=== PATIENT | male | born 1940 | race Caucasian/White ===

== ENCOUNTER 2021-09-30 20:47 | Inpatient (IN) | payer MEDICARE, BC ==
[~2021-09-30] VITALS: Ht 167.6 cm; Wt 79.8 kg
[~2021-09-30 20:47] MED LIST: AMLO-213 PO; ASPI-605 PO; LISI40TA13 PO; RANI-655 PO; SIMV20TA2 PO
--- NOTE | 2021-09-30 20:53 | NUR ---
AREN - SISTER, [place]- [phone], [place]- [phone]
--- NOTE | 2021-09-30 20:59 | NUR ---
PT BIBRA C/O NEAR SYNCOPAL EPISODE. PT REPORTS BEING ON THE TOILET WHEN HE BECAME DIZZY, BUT HAS DIFFICULTY RECALLING THE REST OF THE EVENTS. STATES HIS ASSITED HIM WHEN HE BECAME DIZZY AND DENIES SYNCOPE. DENIES ANY CURRENT DIZZINESS, N/V, C/P, OR SOB. ALL SKIN IS INTACT WITH NO SIGNS OF TRAUMA, NO NEURO DEFICITS, AND PT DENIES PAIN. PT PLACED ON THE MONITOR AND CHANGED INTO A GOWN. ALL VITALS STABLE. MD WAS AT THE BEDSIDE FOR EVAL.
[2021-09-30 21:24] LABS: BASOPHILS # (AUTO) 0.1 K/uL (0.0-0.2); BASOPHILS % (AUTO) 1.2 % (0.0-2.0); EOSINOPHILS % (AUTO) 3.1 % (0.0-6.0); HEMATOCRIT 42 % (39-51); LYMPHOCYTES # (AUTO) 1.1 K/uL (0.8-4.8); MEAN CORPUSCULAR HGB CONC 33 g/dl (31.0-36.0); MEAN CORPUSCULAR VOLUME 95 fL (80-96); MONOCYTES # (AUTO) 0.8 K/uL (0.1-1.30); MONOCYTES % (AUTO) 10.4 % (2.0-12.0); NEUTROPHILS # (AUTO) 5.5 K/uL (1.8-8.9); NEUTROPHILS % (AUTO) 71.3 % (43.0-81.0); PLATELET COUNT (AUTO) 167 K/uL (150-450); RED BLOOD CELL COUNT(AUTO) 4.43 MIL/uL (4.5-6.0); WHITE BLOOD COUNT (AUTO) 7.8 K/uL (4.3-11.0)
[2021-09-30 21:36] LABS: ALANINE AMINOTRANSFERASE 26 U/L (12-78); ALBUMIN 3.5 g/dL (3.4-5.0); ALKALINE PHOSPHATASE 74 U/L (46-116); ASPARTATE AMINOTRANSFERASE 24 U/L (15-37); BILIRUBIN,DIRECT 0.2 mg/dL (0.0-0.2); BILIRUBIN,TOTAL 0.4 mg/dL (0.2-1.0); CALCIUM, SERUM 8.3 mg/dL (8.5-10.1); CARBON DIOXIDE 24 mmol/L (21-32); CHLORIDE 90 mmol/L (98-107); CREATININE 0.9 mg/dL (0.6-1.3); GLUCOSE 121 mg/dL (74-106); POTASSIUM 4.4 mmol/L (3.5-5.1); SODIUM SERUM 126 mmol/L (136-145); TOTAL PROTEIN, SERUM 6.7 g/dL (6.4-8.2); UREA NITROGEN, BLOOD 8 mg/dL (7-18)
[2021-09-30] MEDS ORDERED: MAGNESIUM HYDROXIDE 30 ML UDC PO PRN (23:00)
[2021-09-30] MEDS ORDERED: MAG HYDROX/AL HYDROX/SIMETH 30 ML UDC PO PRN (23:00)
[2021-09-30] MEDS ORDERED: ONDANSETRON HCL/PF 4 MG/2 ML VIAL IVP PRN (23:00)
[2021-09-30] MEDS ORDERED: ACETAMINOPHEN 325 MG TABLET PO PRN (23:00)
[2021-09-30] MEDS ORDERED: ZOLPIDEM TARTRATE 5 MG TABLET PO PRN (23:00)
[2021-09-30] MEDS ORDERED: Z GUARD REMEDY 2 OZ OINT TP PRN (23:00)
--- NOTE | 2021-09-30 23:20 | NUR ---
REPORT GIVEN TO HAIM
--- NOTE | 2021-10-01 00:38 | NUR ---
TRANSFERRED TO 311 UNDER ACLS
[2021-10-01 01:00] VITALS: BP 144/67
--- NOTE | 2021-10-01 01:00 | NUR ---
MS JULIAN ADMITTING/OPENING NOTES PATIENT WAS TRANSFERRED TO THE UNIT VIA [facility] ACCOMPANIED BY NURSE CAUSEY AT APPROXIMATELY THIS TIME. PATIENT WAS ABLE TO AMBULATE FROM THE GURNEY TO HIS BED. PATIENT WAS ORIENTED TO THE STAFF AND ROOM. PATIENT'S ALERT AND ORIENTED X4. PATIENT'S STABLE ON ROOM AIR. PATIENT HAS A LAC GAUGE#18, WHICH IS INTACT, PATENT, AND FLUSHING WELL. PATIENT'S IN NO ACUTE DISTRESS AT THIS TIME. SAFETY MEASURES IN PLACE: BED LOCKED, SIDE RAILS UPX2, AND CALL LIGHT WITHIN REACH. WILL CONTINUE TO MONITOR THE PATIENT. Addendum: 10/01/21 at 0204 by HAIM MAYES RN REPORT GIVEN BY GIANCARLO CAUSEY.
[2021-10-01] MEDS: IV NS 0.9% 1,000 ML IV PRN ×2 (03:50→21:31)
[2021-10-01 04:00] VITALS: BP 134/53
[2021-10-01 06:45] LABS: BASOPHILS % (AUTO) 0.7 % (0.0-2.0); EOSINOPHILS % (AUTO) 1.6 % (0.0-6.0); HEMATOCRIT 39 % (39-51); HEMOGLOBIN 13.3 g/dL (13.5-17.5); LYMPHOCYTES # (AUTO) 0.7 K/uL (0.8-4.8); LYMPHOCYTES % (AUTO) 11.9 % (20.0-44.0); MEAN CORPUSCULAR HGB CONC 34 g/dl (31.0-36.0); MEAN CORPUSCULAR VOLUME 94 fL (80-96); MONOCYTES # (AUTO) 0.6 K/uL (0.1-1.30); MONOCYTES % (AUTO) 10.1 % (2.0-12.0); NEUTROPHILS # (AUTO) 4.6 K/uL (1.8-8.9); NEUTROPHILS % (AUTO) 75.7 % (43.0-81.0); PLATELET COUNT (AUTO) 151 K/uL (150-450); RED BLOOD CELL COUNT(AUTO) 4.18 MIL/uL (4.5-6.0); WHITE BLOOD COUNT (AUTO) 6.1 K/uL (4.3-11.0)
[2021-10-01 06:53] LABS: CALCIUM, SERUM 8.2 mg/dL (8.5-10.1); CREATININE 0.7 mg/dL (0.6-1.3); MAGNESIUM 2.2 mg/dL (1.8-2.4); PHOSPHORUS 4.3 mg/dL (2.5-4.9); POTASSIUM 5.2 mmol/L (3.5-5.1)
--- NOTE | 2021-10-01 07:00 | NUR ---
MS RN CLOSING NOTES PATIENT WAS LAST SEEN RESTING IN BED. PATIENT'S ALERT AND ORIENTED X4 & STABLE ON ROOM AIR. PATIENT HAS A LAC GAUGE#18, WHICH IS INTACT, PATENT, AND FLUSHING WELL. PATIENT'S IN NO ACUTE DISTRESS AT THIS TIME. SAFETY MEASURES IN PLACE: BED LOCKED, SIDE RAILS UPX2, AND CALL LIGHT WITHIN REACH. WILL ENDORSE CARE TO THE DAY SHIFT NURSE.
[2021-10-01 07:06] LABS: THYROID STIMULATING HORMONE 5.195 uIU/mL (0.358-3.74)
--- NOTE | 2021-10-01 07:30 | NUR ---
RN OPENING TELE NOTES: RECEIVED PATIENT IN BED AWAKE. PATIENT ALERT AND ORIENTED X4. NO PAIN NOTED, NO RESPIRATORY DISTRESS NOTED, NO SOB NOTED. IV SITE ON THE LEFT UPPER ARM INTACT AND PATENT. NO SWELLING NO REDNESS NOTED. PATIENT TELE SR=65 .ABLE TO MAKE NEEDS KNOWN. BED IN THE LOWEST POSITION AND LOCKED. CALL LIGHT AND TABLE WITHIN REACH. REMINDED THE PATIENT ASK FOR ASSISTANCE IF ANY DIZZINESS NOTED. VERBALIZED UNDERSTANDING . WILL CONTINUE TO MONITOR.
[2021-10-01] MEDS: PANTOPRAZOLE 40 MG TABLET.DR PO SCH (07:45)
[2021-10-01 08:00] VITALS: BP 131/74
--- NOTE | 2021-10-01 08:14 | NUR ---
WOUND CARE CONSULT: PT SITTING UP AT EDGE OF BED, EATING BREAKFAST. PT DENIES ANY WOUNDS OR SKIN ISSUES. CURRENT DAWSON SCORE IS 20. WILL SEE PRN.
[2021-10-01] MEDS: ASPIRIN EC 81 MG TABLET.DR PO SCH (08:38)
[2021-10-01] MEDS: AMLODIPINE BESYLATE 10 MG TABLET PO SCH (08:38)
[2021-10-01] MEDS: FAMOTIDINE (20 MG) 20 MG TABLET PO SCH (08:39)
[2021-10-01] MEDS: ENOXAPARIN SODIUM 40 MG/0.4 ML DISP.SYRIN SQ SCH (08:41)
[2021-10-01] MEDS ORDERED: LISINOPRIL (20MG) 20 MG TABLET PO SCH (09:00)
[2021-10-01 09:20] LABS: CALCIUM, SERUM 8.2 mg/dL (8.5-10.1); CREATININE 0.7 mg/dL (0.6-1.3); POTASSIUM 5.1 mmol/L (3.5-5.1)
[2021-10-01 09:24] LABS: ALBUMIN 3.2 g/dL (3.4-5.0); BILIRUBIN,TOTAL 0.5 mg/dL (0.2-1.0); MAGNESIUM 2.4 mg/dL (1.8-2.4); PHOSPHORUS 4.3 mg/dL (2.5-4.9); TOTAL PROTEIN, SERUM 6.3 g/dL (6.4-8.2)
[2021-10-01] MEDS ORDERED: LATA2.5D15 RIGHTEYE (09:35)
[2021-10-01] MEDS ORDERED: LOSA1TAB39 PO (09:35)
[2021-10-01] MEDS ORDERED: FLUT16SP (09:35)
[2021-10-01] MEDS ORDERED: ASCO-352 PO (09:35)
[2021-10-01] MEDS ORDERED: CHOL100062 PO (09:35)
[2021-10-01] MEDS ORDERED: FAMO40TA7 PO (09:35)
[2021-10-01] MEDS ORDERED: VIT1CAPS9 PO (09:35)
[2021-10-01 10:13] LABS: THYROID STIMULATING HORMONE 4.92 uIU/mL (0.358-3.74)
--- NOTE | 2021-10-01 11:56 | NUR ---
RN NOTES CAROTID DOPPLER IMAGING RESULT IN- RELAYED TO DR. PEDRAZA AND DR. OH.
[2021-10-01 12:00] VITALS: BP 114/56
[2021-10-01 16:00] VITALS: BP 119/68
--- NOTE | 2021-10-01 17:15 | NUR ---
RN NOTES PATIENT WAS SEEN AND EXAMINED ON ROUNDS BY DR. CRUZ WITH ORDER MADE AND CARRIED OUT. FOR CTA OF CAROTID (HEAD AND NECK). CONSENT SECURED AND FILED TO CHART.
--- NOTE | 2021-10-01 18:25 | NUR ---
RN CLOSING TELE NOTES: PATIENT IN BED AWAKE, RESTING. PATIENT ALERT AND ORIENTED X4. NO PAIN NOTED, NO RESPIRATORY DISTRESS NOTED, NO SOB NOTED. BREATHS ON ROOM AIR WITHOUT ANY DIFFICULTY. IV SITE ON THE LEFT UPPER ARM G#18 INTACT AND PATENT. NO SWELLING NO REDNESS, NO BLEEDING NOTED. PATIENT TELE SR=61 .ABLE TO MAKE NEEDS KNOWN. ALL MEDICATIONS GIVEN ORDERED, PATIENT TOLERATED WELL AND COOPERATIVE WITH PLAN OF CARE. ALL NEEDS ATTENDED.SAFETY MEASURES DONE. BED IN THE LOWEST POSITION AND LOCKED. CALL LIGHT AND TABLE WITHIN REACH. REMINDED THE PATIENT ASK FOR ASSISTANCE IF ANY DIZZINESS OR DISCOMFORT NOTED. VERBALIZED UNDERSTANDING . WILL ENDORSE THE PATIENT TO THE ONCOMING SHIFT FOR CONTINUOUS OF THE CARE.
--- NOTE | 2021-10-01 19:30 | NUR ---
ICT HELP DESK TECHNICIAN NOTES RECEIVED ON BED,RESTING,A/O X4,BREATHING REGULAR,NOT IN ANY FORM OF DISTRESS,IVF NS AT 75ML/HR RATE INFUSING WELL ON LAC SALINE LOCK VIA IV PUMP,SITE PATENT.DVT IN USED FOR DVT PROPHYLAXIS.AMBULATE WITH ASSIST.PER REPORT,PATIENT GOING FOR CT ANGIOGRAM OF CAROTID INCLUDING HEAD AND NECK.CONSENT ON CHART.FALL PRECAUTION OBSERVED,BED ON LOWEST POSITION AND LOCKED.CALL LIGHT IN REACH,NEEDS ANTICIPATED.
[2021-10-01 20:00] VITALS: BP 116/55
[2021-10-01] MEDS: SIMVASTATIN 20 MG TABLET PO SCH (21:31)
[2021-10-02] VITALS (7 sets, daily range): BP systolic 121–147; BP diastolic 56–78
[2021-10-02 06:14] LABS: BASOPHILS # (AUTO) 0.1 K/uL (0.0-0.2); BASOPHILS % (AUTO) 0.9 % (0.0-2.0); EOSINOPHILS % (AUTO) 3.3 % (0.0-6.0); HEMATOCRIT 37 % (39-51); HEMOGLOBIN 12.5 g/dL (13.5-17.5); LYMPHOCYTES # (AUTO) 0.9 K/uL (0.8-4.8); LYMPHOCYTES % (AUTO) 12.4 % (20.0-44.0); MEAN CORPUSCULAR HGB CONC 34 g/dl (31.0-36.0); MEAN CORPUSCULAR VOLUME 94 fL (80-96); MONOCYTES # (AUTO) 0.7 K/uL (0.1-1.30); MONOCYTES % (AUTO) 10.2 % (2.0-12.0); NEUTROPHILS # (AUTO) 5.1 K/uL (1.8-8.9); NEUTROPHILS % (AUTO) 73.2 % (43.0-81.0); PLATELET COUNT (AUTO) 148 K/uL (150-450); RED BLOOD CELL COUNT(AUTO) 3.93 MIL/uL (4.5-6.0)
[2021-10-02 07:01] LABS: ALANINE AMINOTRANSFERASE 27 U/L (12-78); ALBUMIN 2.9 g/dL (3.4-5.0); ALKALINE PHOSPHATASE 65 U/L (46-116); ASPARTATE AMINOTRANSFERASE 22 U/L (15-37); BILIRUBIN,TOTAL 0.5 mg/dL (0.2-1.0); CALCIUM, SERUM 8.1 mg/dL (8.5-10.1); CARBON DIOXIDE 29 mmol/L (21-32); CHLORIDE 97 mmol/L (98-107); CHOLESTEROL 175 mg/dL (<200); CREATININE 0.9 mg/dL (0.6-1.3); GLUCOSE 101 mg/dL (74-106); HDL CHOLESTEROL 92 mg/dL (40-60); LDL 68 mg/dL (0-99); MAGNESIUM 2.3 mg/dL (1.8-2.4); PHOSPHORUS 3.9 mg/dL (2.5-4.9); POTASSIUM 4.6 mmol/L (3.5-5.1); SODIUM SERUM 128 mmol/L (136-145); TOTAL PROTEIN, SERUM 5.8 g/dL (6.4-8.2); TRIGLYCERIDES 37 mg/dL (30-150); UREA NITROGEN, BLOOD 8 mg/dL (7-18)
--- NOTE | 2021-10-02 07:30 | NUR ---
WELDER 2ND SHIFT OPENING NOTES RECEIVED PATIENT SITTING ON BED, AWAKE AND A/O X4. ON ROOM AIR TOLERATING WELL. NO SOB NOTED. NOT IN DISTRESS. WITH NO COMPLAINTS OF PAIN OR DISCOMFORT AT THIS TIME. WITH IV ACCESS AT LEFT AC G18 WITH IVF NS AT 75ML/HR RATE INFUSING WELL. DVT IN USE FOR DVT PROPHYLAXIS. SAFETY MEASURES IN PLACE. CALL LIGHT WITHIN REACH. BED ON LOWEST AND LOCKED POSITION, SIDE RAILS UP X2. WILL CONTINUE TO MONITOR.
[2021-10-02] MEDS: FAMOTIDINE (20 MG) 20 MG TABLET PO SCH (08:10)
[2021-10-02] MEDS: PANTOPRAZOLE 40 MG TABLET.DR PO SCH (08:10)
[2021-10-02] MEDS: AMLODIPINE BESYLATE 10 MG TABLET PO SCH (08:10)
[2021-10-02] MEDS: ASPIRIN EC 81 MG TABLET.DR PO SCH (08:10)
[2021-10-02] MEDS: ENOXAPARIN SODIUM 40 MG/0.4 ML DISP.SYRIN SQ SCH (08:11)
[2021-10-02] MEDS ORDERED: IOHEXOL-350 100 ML VIAL IV ONE ×2 (09:13→10:20)
[2021-10-02] MEDS ORDERED: IV NS 0.9% 250 ML IV ONE ×2 (09:13→10:21)
[2021-10-02] MEDS ORDERED: MINERAL OIL 133 ML (PYXIS) 1 EA ENEMA RC ONE (16:00)
[2021-10-02] MEDS: IV NS 0.9% 1,000 ML IV PRN (17:35)
--- NOTE | 2021-10-02 18:55 | NUR ---
[employer]ATED TRUCK DRIVER CLOSING NOTES PATIENT SITTING ON BED, AWAKE AND A/O X4. ON ROOM AIR TOLERATING WELL. NO SOB NOTED. NOT IN DISTRESS. WITH NO COMPLAINTS OF PAIN OR DISCOMFORT AT THIS TIME. WITH IV ACCESS AT LEFT AC G18 WITH IVF NS AT 75ML/HR RATE INFUSING WELL. SAFETY MEASURES IN PLACE. CALL LIGHT WITHIN REACH. BED ON LOWEST AND LOCKED POSITION, SIDE RAILS UP X2. WILL ENDORSE TO NEXT SHIFT FOR AMIE.
--- NOTE | 2021-10-02 19:33 | NUR ---
MS RN OPENING NOTES PATIENT SITTING ON BED, AWAKE AND A/O X4. ON ROOM AIR TOLERATING WELL. NO SOB NOTED. NOT IN DISTRESS. WITH NO COMPLAINTS OF PAIN OR DISCOMFORT AT THIS TIME. WITH IV ACCESS AT LEFT AC G18 WITH IVF NS AT 75ML/HR RATE INFUSING WELL. SAFETY MEASURES IN PLACE. CALL LIGHT WITHIN REACH. BED ON LOWEST AND LOCKED POSITION, SIDE RAILS UP X2. WILL CONTINUE TO MONITOR.
[2021-10-02] MEDS: SIMVASTATIN 20 MG TABLET PO SCH (21:30)
--- NOTE | 2021-10-02 21:33 | NUR ---
RN NOTES PT IS REFUSING TO CONNECT IV FLUIDS RISK AND BENEFITS EXPLAINED X3 REFUSED X3 WILL CONTINUE TO MONITOR.
[2021-10-03] VITALS: BP 123/52
[2021-10-03 04:00] VITALS: BP 139/64
--- NOTE | 2021-10-03 06:52 | NUR ---
MS RN NOTES PATIENT SITTING ON BED, AWAKE AND A/O X4. ON ROOM AIR TOLERATING WELL. NO SOB NOTED. NOT IN DISTRESS. WITH NO COMPLAINTS OF PAIN OR DISCOMFORT AT THIS TIME. WITH IV ACCESS AT LEFT AC G18 WITH IVF NS AT 75ML/HR RATE INFUSING WELL. SAFETY MEASURES IN PLACE. CALL LIGHT WITHIN REACH. BED ON LOWEST AND LOCKED POSITION, SIDE RAILS UP X2. WILL ENDORSE CARE TO DAYSHIFT NURSE.
--- NOTE | 2021-10-03 07:30 | NUR ---
APPEALS REVIEWER VETERAN OPENING NOTE RECEIVED PT AWAKE IN BED. A/O X4. PT IS STABLE ON ROOM AIR WITH NO SOB OR S/S OF RESPIRATORY DISTRESS NOTED. PT ON EXTERNAL CHIEF BANK EXAMINER READING SR AT 67 BPM. PT HAS NO C/O PAIN OR DISCOMFORT AT THIS TIME. IV ACCESS IN LAC #18 INFUSING NS AT 75ML/HR, INTACT AND PATENT. SAFETY PRECAUTIONS MAINTAINED. BED IN LOWEST LOCKED POSITION, HOB ELEVATED, SIDE RAILS UP X2. CALL LIGHT AND TABLE WITHIN REACH. WILL CONTINUE TO MONITOR.
[2021-10-03] MEDS: PANTOPRAZOLE 40 MG TABLET.DR PO SCH (07:39)
[2021-10-03 08:00] VITALS: BP 143/70
[2021-10-03 08:50] VITALS: BP 143/70
[2021-10-03] MEDS: AMLODIPINE BESYLATE 10 MG TABLET PO SCH (08:50)
[2021-10-03] MEDS: FAMOTIDINE (20 MG) 20 MG TABLET PO SCH (08:50)
[2021-10-03] MEDS: ASPIRIN EC 81 MG TABLET.DR PO SCH (08:52)
[2021-10-03] MEDS: ENOXAPARIN SODIUM 40 MG/0.4 ML DISP.SYRIN SQ SCH (08:53)
--- NOTE | 2021-10-03 12:45 | NUR ---
TONE CABINET ASSEMBLERFRONT END ARCHITECT NOTE PT DISCHARGED HOME WITH SELF CARE AT THIS TIME. PT IS MEDICALLY STABLE AND CLEARED FOR DISCHARGE BY DR PEDRAZA. ALL PT CARE, NEEDS, MEDICATIONS, AND TREATMENT ADMINISTERED PER ORDER. DISCHARGE INSTRUCTIONS PROVIDED TO PT. PT VERBALIZED UNDERSTANDING. PT KEPT CLEAN AND DRY. BELONGINGS LIST ACCOUNTED FOR AND SIGNED BY PT. IV ACCESS REMOVED, PRESSURE APPLIED, AND SECURED WITH GAUZE AND TAPE. NO SIGNS OF BLEEDING NOTED. ID BAND REMOVED. PT TRANSPORTED TO [facility] VIA WHEELCHAIR ACCOMPANIED BY ELIEL BELTRE. CHARGE NURSE DANIEL AND DR PEDRAZA AWARE.
[2021-10-06 06:06] LABS: *SPE A/G RATIO 1.2 (0.7-1.7); *SPE ALPHA-1-GLOBULIN 0.2 g/dL (0.0-0.4); *SPE ALPHA-2-GLOBULIN 0.6 g/dL (0.4-1.0); *SPE BETA GLOBULIN 0.7 g/dL (0.7-1.3); *SPE M-SPIKE 0.4 g/dL (Not Observed)
== END 2021-10-03 12:45 | disposition home or self-care (01) | DRG 68 ==
LOC: ER 21:00 → TELE 23:01 → MED 10-03 10:41
PROVIDERS: ADMIT Student in an Organized Health Care Education/Training Program; ATTEND Internal Medicine
DX: I65.21 Occlusion and stenosis of right carotid artery (principal); E22.2 Syndrome of inappropriate secretion of antidiuretic hormone; E87.3 Alkalosis; F42.9 Obsessive-compulsive disorder, unspecified; I25.10 Atherosclerotic heart disease of native coronary artery without angina pectoris; K21.9 Gastro-esophageal reflux disease without esophagitis; K27.9 Peptic ulcer, site unspecified, unspecified as acute or chronic, without hemorrhage or perforation; N40.0 Benign prostatic hyperplasia without lower urinary tract symptoms; K63.5 Polyp of colon; Z20.822 Contact with and (suspected) exposure to COVID-19; I10 Essential (primary) hypertension; Z86.010 Personal history of colon polyps; Z88.2 Allergy status to sulfonamides; Z79.82 Long term (current) use of aspirin; E78.5 Hyperlipidemia, unspecified; Z79.899 Other long term (current) drug therapy; H40.9 Unspecified glaucoma; Z72.0 Tobacco use; E87.5 Hyperkalemia; Z85.00 Personal history of malignant neoplasm of unspecified digestive organ; J32.0 Chronic maxillary sinusitis; K11.8 Other diseases of salivary glands
CPT/HCPCS: 36415; 70450-TC; 70496-TC; 70498-TC; 71045-TC; 80048-TC; 80053-TC; 80061-TC; 80076-TC; 82728-TC; 82962-TC; 83540-TC; 83735-TC; 83880; 84100-TC; 84155; 84165; 84300-TC; 84439-TC; 84443-TC; 84484-TC; 85025-TC; 85730-TC; 87081-TC; 93307-TC; 93880-TC; 97116-TC; 97530-TC; C9803; G0378; J1650; J7030; J7050; Q9967

== ENCOUNTER 2025-05-06 12:35 | Inpatient (IN) | payer MEDICARE, BC ==
[~2025-05-06] VITALS: Ht 167.6 cm; Wt 78.0 kg
[~2025-05-06 12:35] MED LIST changes: +ASCO-352 PO; +CHOL100062 PO; +FAMO40TA7 PO; +FLUT16SP; +LATA2.5D15 RIGHTEYE; -LISI40TA13 PO; +LOSA1TAB39 PO; -RANI-655 PO; -SIMV20TA2 PO; +VIT1CAPS9 PO
[2025-05-06 13:02] LABS: HEMOGLOBIN 12.2 g/dL (13.5-17.5)
[2025-05-06 13:11] LABS: BASOPHILS # (AUTO) 0.1 K/uL (0.0-0.2); BASOPHILS % (AUTO) 1.2 % (0.0-2.0); HEMATOCRIT 37 % (39-51); LYMPHOCYTES # (AUTO) 0.3 K/uL (0.8-4.8); LYMPHOCYTES % (AUTO) 2.6 % (20.0-44.0); MEAN CORPUSCULAR HEMOGLOBIN 30 PG (26.0-33.0); MEAN CORPUSCULAR HGB CONC 33 g/dl (31.0-36.0); MEAN CORPUSCULAR VOLUME 89 fL (80-96); MONOCYTES # (AUTO) 2.1 K/uL (0.1-1.30); MONOCYTES % (AUTO) 17.1 % (2.0-12.0); NEUTROPHILS # (AUTO) 9.5 K/uL (1.8-8.9); NEUTROPHILS % (AUTO) 79.1 % (43.0-81.0); PLATELET COUNT (AUTO) 127 K/uL (150-450); RED BLOOD CELL COUNT(AUTO) 4.11 MIL/uL (4.5-6.0); RED CELL DISTRIBUTION WIDTH 14.9 % (11.5-15.0)
[2025-05-06 13:13] LABS: CALCIUM, SERUM 8.5 mg/dL (8.5-10.1); CARBON DIOXIDE 26 mmol/L (21-32); CHLORIDE 94 mmol/L (98-107); CREATININE 1.2 mg/dL (0.6-1.3); GLUCOSE 150 mg/dL (74-106); POTASSIUM 5.3 mmol/L (3.5-5.1); SODIUM SERUM 129 mmol/L (136-145); UREA NITROGEN, BLOOD 22 mg/dL (7-18)
[2025-05-06 13:26] LABS: ALANINE AMINOTRANSFERASE 17 U/L (12-78); ALBUMIN 3.3 g/dL (3.4-5.0); ALKALINE PHOSPHATASE 77 U/L (46-116); ASPARTATE AMINOTRANSFERASE 10 U/L (15-37); BILIRUBIN,DIRECT 0.3 mg/dL (0.0-0.2); BILIRUBIN,TOTAL 0.9 mg/dL (0.2-1.0); NT-PRO BNP 1244 pg/mL (0-125); TOTAL PROTEIN, SERUM 7.2 g/dL (6.4-8.2)
[2025-05-06 14:00] LABS: LYMPHOCYTES % (MANUAL) 2 % (16-48); MONOCYTES % (MANUAL) 13 % (0-11.0); NEUTROPHILS % (MANUAL) 85 (42-76); PLATELET ESTIMATE DECREASED
[2025-05-06] MEDS ORDERED: IOHEXOL-350 100 ML VIAL IV ONE (14:02)
[2025-05-06] MEDS ORDERED: DILTIAZEM HCL 50 MG IV IV ONE (14:30)
[2025-05-06] MEDS ORDERED: MAG HYDROX/AL HYDROX/SIMETH 30 ML UDC PO PRN (14:30)
[2025-05-06] MEDS ORDERED: ACETAMINOPHEN 325 MG TABLET PO PRN (14:30)
[2025-05-06] MEDS ORDERED: ONDANSETRON HCL/PF 4 MG/2 ML VIAL IVP PRN (14:30)
[2025-05-06] MEDS ORDERED: CLOP75TA15 PO (14:45)
[2025-05-06] MEDS ORDERED: TAMS-12 PO (14:45)
[2025-05-06] MEDS ORDERED: LEVO75TA PO (14:45)
[2025-05-06] MEDS ORDERED: AMLO-212 PO (14:45)
[2025-05-06] MEDS ORDERED: FAMO20TA8 PO (14:45)
[2025-05-06] MEDS: FUROSEMIDE 40 MG/4 ML VIAL IV ONE (15:15)
[2025-05-06 16:03] LABS: APPEARANCE,URINE CLEAR (CLEAR); BILIRUBIN,URINE NEGATIVE (NEGATIVE); BLOOD, URINE NEGATIVE Ery/uL (NEGATIVE); COLOR,URINE YELLOW (YELLOW); KETONES,URINE NEGATIVE (NEGATIVE); LEUKOCYTE ESTERASE ,URINE NEGATIVE (NEGATIVE); NITRITE, URINE NEGATIVE (NEGATIVE); PROTEIN,URINE 2+ mg/dl (NEGATIVE); UGLUCOSE NEGATIVE (NEGATIVE); UROBILINOGEN,URINE 0.2 EU/dL (0.2)
[2025-05-06 16:15] LABS: RBC,URINE 0-2 /HPF (0-2)
[2025-05-06 16:16] LABS: ADD URINE CULTURE NO; BACTERIA,URINE Rare /HPF (None Seen); SQUAMOUS EPITHELIAL CELL,UR 0-2 /HPF (None Seen); WBC,URINE 0-2 /HPF (0-3)
[2025-05-06 16:18] LABS: URIC ACID CRYSTALS,URINE Rare /HPF (None Seen)
[2025-05-06 17:30] VITALS: BP 136/83; TEMP 98.2; O2SAT 96
[2025-05-06 20:00] VITALS: BP 132/73; TEMP 98.4; O2SAT 97
[2025-05-06] MEDS ORDERED: DILTIAZEM HCL 25 MG IV ONE ×2 (20:18→22:31)
[2025-05-06] MEDS: DILTIAZEM HCL 50 MG IV IV ONE (20:28)
[2025-05-06] MEDS: MAGNESIUM HYDROXIDE 30 ML UDC PO PRN (21:11)
[2025-05-06] MEDS ORDERED: DILTIAZEM HCL IV 125 MG in IV NS 0.9% 100 ML IV PRN (21:30)
[2025-05-06] MEDS: DILTIAZEM HCL 25 MG IV ONE (22:27)
[2025-05-06] MEDS: DILTIAZEM HCL IV 125 MG in IV NS 0.9% 100 ML IV PRN (22:45)
[2025-05-07] VITALS (10 sets, daily range): BP systolic 115–163; BP diastolic 75–91; TEMP 98.1–98.6; O2SAT 84–100
[2025-05-07 07:49] LABS: BASOPHILS # (AUTO) 0.1 K/uL (0.0-0.2); BASOPHILS % (AUTO) 0.5 % (0.0-2.0); HEMATOCRIT 36 % (39-51); HEMOGLOBIN 11.8 g/dL (13.5-17.5); LYMPHOCYTES # (AUTO) 0.4 K/uL (0.8-4.8); LYMPHOCYTES % (AUTO) 3.6 % (20.0-44.0); MEAN CORPUSCULAR HEMOGLOBIN 30 PG (26.0-33.0); MEAN CORPUSCULAR HGB CONC 33 g/dl (31.0-36.0); MEAN CORPUSCULAR VOLUME 91 fL (80-96); MONOCYTES # (AUTO) 2.5 K/uL (0.1-1.30); MONOCYTES % (AUTO) 21.9 % (2.0-12.0); NEUTROPHILS # (AUTO) 8.4 K/uL (1.8-8.9); PLATELET COUNT (AUTO) 115 K/uL (150-450); RED BLOOD CELL COUNT(AUTO) 3.96 MIL/uL (4.5-6.0); RED CELL DISTRIBUTION WIDTH 15.4 % (11.5-15.0); WHITE BLOOD COUNT (AUTO) 11.4 K/uL (4.3-11.0)
[2025-05-07 07:52] LABS: CALCIUM, SERUM 8.5 mg/dL (8.5-10.1); CREATININE 1.3 mg/dL (0.6-1.3); PHOSPHORUS 4.9 mg/dL (2.5-4.9)
[2025-05-07] MEDS: CARVEDILOL 3.125 MG TABLET PO SCH (11:24)
[2025-05-07] MEDS: AMLODIPINE BESYLATE 5 MG TABLET PO SCH (17:18)
[2025-05-07] MEDS: TAMSULOSIN 0.4 MG CAP.SR.24H PO SCH (17:23)
[2025-05-07] MEDS ORDERED: METOPROLOL TARTRATE 25 MG TABLET PO SCH (18:30)
[2025-05-07] MEDS: ALBUTEROL FS 2.5 MG/3 ML VIAL.NEB NEB PRN (20:27)
[2025-05-07] MEDS: FLUTICASONE PROPIONATE 16 GM BOTTLE NS SCH (20:38)
[2025-05-07] MEDS: LATANOPROST EYE DROP 0.005% 2.5 ML BOTTLE RIGHTEYE SCH (21:18)
[2025-05-08] VITALS (15 sets, daily range): BP systolic 109–172; BP diastolic 57–87; TEMP 98–100.1; O2SAT 88–100
[2025-05-08 06:42] LABS: BASOPHILS % (AUTO) 0.3 % (0.0-2.0); EOSINOPHILS % (AUTO) 0.4 % (0.0-6.0); HEMATOCRIT 33 % (39-51); HEMOGLOBIN 11.3 g/dL (13.5-17.5); LYMPHOCYTES # (AUTO) 0.5 K/uL (0.8-4.8); LYMPHOCYTES % (AUTO) 5.6 % (20.0-44.0); MEAN CORPUSCULAR HEMOGLOBIN 31 PG (26.0-33.0); MEAN CORPUSCULAR HGB CONC 34 g/dl (31.0-36.0); MEAN CORPUSCULAR VOLUME 89 fL (80-96); MONOCYTES # (AUTO) 1.9 K/uL (0.1-1.30); MONOCYTES % (AUTO) 20.2 % (2.0-12.0); NEUTROPHILS # (AUTO) 6.9 K/uL (1.8-8.9); NEUTROPHILS % (AUTO) 73.5 % (43.0-81.0); PLATELET COUNT (AUTO) 128 K/uL (150-450); RED CELL DISTRIBUTION WIDTH 14.8 % (11.5-15.0); WHITE BLOOD COUNT (AUTO) 9.4 K/uL (4.3-11.0)
[2025-05-08 07:28] LABS: ALBUMIN 2.9 g/dL (3.4-5.0); BILIRUBIN,TOTAL 0.6 mg/dL (0.2-1.0); CALCIUM, SERUM 8.5 mg/dL (8.5-10.1); CREATININE 1.2 mg/dL (0.6-1.3); MAGNESIUM 3.1 mg/dL (1.8-2.4); PHOSPHORUS 4.2 mg/dL (2.5-4.9); POTASSIUM 5.4 mmol/L (3.5-5.1); TOTAL PROTEIN, SERUM 7.2 g/dL (6.4-8.2)
[2025-05-08] MEDS: LEVOTHYROXINE SODIUM 75 MCG TABLET PO SCH (07:54)
[2025-05-08] MEDS: DILTIAZEM HCL 25 MG IV IV ONE (08:08)
[2025-05-08 08:22] LABS: LYMPHOCYTES % (MANUAL) 6 % (16-48); MONOCYTES % (MANUAL) 7 % (0-11.0); NEUTROPHILS % (MANUAL) 87 (42-76)
[2025-05-08 08:24] LABS: ANISOCYTOSIS 1+
[2025-05-08 08:25] LABS: PLATELET ESTIMATE ADEQU
[2025-05-08] MEDS: CLOPIDOGREL BISULFATE 75 MG TABLET PO SCH (08:42)
[2025-05-08] MEDS: FAMOTIDINE (20 MG) 20 MG TABLET PO SCH (08:42)
[2025-05-08] MEDS: ASCORBIC ACID 500 MG TABLET PO SCH (08:42)
[2025-05-08] MEDS: DILTIAZEM HCL IV 125 MG in IV NS 0.9% 100 ML IV PRN (08:44)
[2025-05-08] MEDS: BISACODYL SUPP (10 MG) 10 MG/SUPP.RECT SUPP.RECT RC PRN (12:18)
[2025-05-08] MEDS: SODIUM ZIRCONIUM CYCLOSILICATE 10 GM POWD.PACK PO SCH (16:51)
[2025-05-08 18:02] LABS: CALCIUM, SERUM 8.7 mg/dL (8.5-10.1); CREATININE 1.1 mg/dL (0.6-1.3)
[2025-05-08 18:07] LABS: POTASSIUM 6.7 mmol/L (3.5-5.1)
[2025-05-08] MEDS: SODIUM ZIRCONIUM CYCLOSILICATE 10 GM POWD.PACK PO ONE (18:41)
[2025-05-08] MEDS: FUROSEMIDE 40 MG/4 ML VIAL IV ONE (18:41)
[2025-05-08] MEDS: DEXTROSE 50%-WATER 50 ML DISP.SYRIN IVP ONE (18:45)
[2025-05-08] MEDS: SODIUM BICARBONATE SYR 50 MEQ/50 ML DISP.SYRIN IV ONE (18:46)
[2025-05-08] MEDS: INSULIN REGULAR, HUMAN 100 UNIT/ML 10 ML VIAL IV ONE (18:51)
[2025-05-08] MEDS: FUROSEMIDE 20 MG/2 ML VIAL IV SCH (19:40)
[2025-05-08] MEDS: AMIODARONE HCL 200 MG TABLET PO SCH (19:46)
[2025-05-08] MEDS: Calcium Gluconate 0.465 MEQ/ML VIAL IV ONE (19:46)
[2025-05-08 20:17] LABS: CALCIUM, SERUM 8.6 mg/dL (8.5-10.1); CREATININE 1.1 mg/dL (0.6-1.3); POTASSIUM 5.3 mmol/L (3.5-5.1)
[2025-05-08] MEDS: BLOOD SUGAR DIAGNOSTIC 1 EACH STRIP IN ONE (20:34)
[2025-05-09] VITALS (48 sets, daily range): BP systolic 93–162; BP diastolic 58–95; TEMP 99–101; O2SAT 85–100
[2025-05-09] MEDS: NA PHOS,M-B/NA PHOS,DI-BA 1 EA ENEMA RC PRN (00:23)
[2025-05-09 01:47] LABS: APPEARANCE,URINE TURBID (CLEAR); BILIRUBIN,URINE NEGATIVE (NEGATIVE); BLOOD, URINE NEGATIVE Ery/uL (NEGATIVE); COLOR,URINE DARK YELLOW (YELLOW); KETONES,URINE TRACE mg/dL (NEGATIVE); LEUKOCYTE ESTERASE ,URINE NEGATIVE (NEGATIVE); NITRITE, URINE NEGATIVE (NEGATIVE); PH,URINE 5.5 (5.0-8.0); PROTEIN,URINE 2+ mg/dl (NEGATIVE); UGLUCOSE NEGATIVE (NEGATIVE); UROBILINOGEN,URINE 0.2 EU/dL (0.2)
[2025-05-09 01:49] LABS: ADD URINE CULTURE NO; BACTERIA,URINE Rare /HPF (None Seen); RBC,URINE 0-2 /HPF (0-2); SQUAMOUS EPITHELIAL CELL,UR Few /HPF (None Seen)
[2025-05-09 01:50] LABS: URINE AMORPHOUS URATE Many /HPF (None Seen)
[2025-05-09 01:55] LABS: URINE SODIUM, RANDOM < 5 mmol/l (40-220); URINE TOTAL PROTEIN 149.6 mg/dL (0-11.9)
[2025-05-09 05:22] LABS: CALCIUM, SERUM 8.5 mg/dL (8.5-10.1); PHOSPHORUS 4.5 mg/dL (2.5-4.9); POTASSIUM 4.6 mmol/L (3.5-5.1)
[2025-05-09 05:34] LABS: THYROID STIMULATING HORMONE 1.46 uIU/mL (0.358-3.74); URIC ACID 7.7 mg/dL (2.6-7.2)
[2025-05-09 07:07] LABS: PTH, INTACT 37 pg/mL (15-65)
[2025-05-09] MEDS ORDERED: ACETAMINOPHEN 325 MG TABLET PO PRN (09:00)
[2025-05-09] MEDS: AMIODARONE HCL 200 MG TABLET PO SCH (13:00)
[2025-05-09] MEDS: AMIODARONE 150 MG in IV D5W 100 ML IV ONE (19:45)
[2025-05-09] MEDS: AMIODARONE 450 MG in IV D5W 241 ML IV PRN (20:01)
[2025-05-09] MEDS: FUROSEMIDE 20 MG/2 ML VIAL IV SCH (21:35)
[2025-05-09] MEDS: CARVEDILOL 3.125 MG TABLET PO SCH (21:45)
[2025-05-09] MEDS: AMLODIPINE BESYLATE 5 MG TABLET PO SCH (21:45)
[2025-05-10] VITALS (50 sets, daily range): BP systolic 90–134; BP diastolic 46–82; TEMP 99–100.2; O2SAT 88–98
[2025-05-10 05:03] LABS: BASOPHILS # (AUTO) 0.1 K/uL (0.0-0.2); BASOPHILS % (AUTO) 1.7 % (0.0-2.0); EOSINOPHILS # (AUTO) 0.1 K/uL (0.0-0.7); HEMATOCRIT 32 % (39-51); HEMOGLOBIN 11.2 g/dL (13.5-17.5); LYMPHOCYTES # (AUTO) 0.3 K/uL (0.8-4.8); LYMPHOCYTES % (AUTO) 4.1 % (20.0-44.0); MEAN CORPUSCULAR HEMOGLOBIN 31 PG (26.0-33.0); MEAN CORPUSCULAR HGB CONC 36 g/dl (31.0-36.0); MEAN CORPUSCULAR VOLUME 88 fL (80-96); MONOCYTES # (AUTO) 1.1 K/uL (0.1-1.30); MONOCYTES % (AUTO) 14.1 % (2.0-12.0); NEUTROPHILS # (AUTO) 5.9 K/uL (1.8-8.9); NEUTROPHILS % (AUTO) 79.1 % (43.0-81.0); PLATELET COUNT (AUTO) 130 K/uL (150-450); RED BLOOD CELL COUNT(AUTO) 3.59 MIL/uL (4.5-6.0); RED CELL DISTRIBUTION WIDTH 14.8 % (11.5-15.0); WHITE BLOOD COUNT (AUTO) 7.5 K/uL (4.3-11.0)
[2025-05-10 05:08] LABS: CALCIUM, SERUM 8.3 mg/dL (8.5-10.1); CARBON DIOXIDE 32 mmol/L (21-32); CHLORIDE 92 mmol/L (98-107); CREATININE 1.3 mg/dL (0.6-1.3); GLUCOSE 131 mg/dL (74-106); POTASSIUM 3.5 mmol/L (3.5-5.1); SODIUM SERUM 131 mmol/L (136-145); UREA NITROGEN, BLOOD 37 mg/dL (7-18)
[2025-05-10 07:10] LABS: *SPE A/G RATIO 0.9 (0.7-1.7); *SPE ALBUMIN 2.9 g/dL (2.9-4.4); *SPE ALPHA-1-GLOBULIN 0.5 g/dL (0.0-0.4); *SPE ALPHA-2-GLOBULIN 0.9 g/dL (0.4-1.0); *SPE BETA GLOBULIN 0.8 g/dL (0.7-1.3); *SPE GLOBULIN, TOTAL 3.1 g/dL (2.2-3.9); *SPE M-SPIKE 0.3 g/dL (Not Observed); *SPEGAMMA GLOBULIN 0.9 g/dL (0.4-1.8)
[2025-05-10] MEDS ORDERED: FUROSEMIDE 20 MG/2 ML VIAL IV SCH (09:00)
[2025-05-10] MEDS: ENOXAPARIN SODIUM 30 MG/0.3 ML DISP.SYRIN SQ SCH (09:30)
[2025-05-10] MEDS: AMIODARONE HCL 200 MG TABLET PO SCH (11:04)
[2025-05-11] VITALS: BP 110/70; TEMP 98.2; O2SAT 95
[2025-05-11 04:00] VITALS: BP 119/71; TEMP 98.2; O2SAT 97
[2025-05-11 07:14] LABS: CALCIUM, SERUM 8.5 mg/dL (8.5-10.1); CREATININE 1.1 mg/dL (0.6-1.3); POTASSIUM 3.6 mmol/L (3.5-5.1)
[2025-05-11 08:00] VITALS: BP 136/61; TEMP 98.1; O2SAT 97
[2025-05-11 08:08] LABS: BASOPHILS % (AUTO) 0.6 % (0.0-2.0); EOSINOPHILS # (AUTO) 0.2 K/uL (0.0-0.7); EOSINOPHILS % (AUTO) 2.3 % (0.0-6.0); HEMATOCRIT 36 % (39-51); LYMPHOCYTES # (AUTO) 0.4 K/uL (0.8-4.8); LYMPHOCYTES % (AUTO) 5.7 % (20.0-44.0); MEAN CORPUSCULAR HEMOGLOBIN 29 PG (26.0-33.0); MEAN CORPUSCULAR HGB CONC 33 g/dl (31.0-36.0); MEAN CORPUSCULAR VOLUME 88 fL (80-96); MONOCYTES % (AUTO) 14.9 % (2.0-12.0); NEUTROPHILS % (AUTO) 76.5 % (43.0-81.0); PLATELET COUNT (AUTO) 156 K/uL (150-450); RED CELL DISTRIBUTION WIDTH 14.3 % (11.5-15.0); WHITE BLOOD COUNT (AUTO) 6.6 K/uL (4.3-11.0)
[2025-05-11] MEDS: APIXABAN 2.5 MG TABLET PO SCH (11:13)
[2025-05-11 12:00] VITALS: BP 128/59; TEMP 97.7; O2SAT 99
[2025-05-11 15:05] LABS: ABG BASE EXCESS 6.3 mmol/L (-2.0-3.0); ABG OXYGEN SATURATION 94.8 % (94.0-98.0); ABG PCO2 45.6 mmHg (35.0-48.0); ABG PH 7.452 (7.350-7.450); ABG PO2 81.3 mmHg (83.0-108.0); ABG TOTAL HEMOGLOBIN 12.3 G/dL (13.5-17.5); COHb 0.3 % (0.5-1.5); MetHb 0.1 % (0.0-1.5); O2Hb 94.4 % (94.0-97.0); SITE, ABG RIGHT RADIAL
[2025-05-11 16:00] VITALS: BP 126/72; TEMP 98.4; O2SAT 98
[2025-05-11 20:00] VITALS: BP 145/63; TEMP 98.4; O2SAT 98
[2025-05-11] MEDS: Z GUARD REMEDY 4 OZ OINT TP PRN (21:07)
[2025-05-12] VITALS (7 sets, daily range): BP systolic 114–141; BP diastolic 59–83; TEMP 97.3–98.2; O2SAT 96–97
[2025-05-12 08:37] LABS: BASOPHILS % (AUTO) 0.2 % (0.0-2.0); EOSINOPHILS # (AUTO) 0.2 K/uL (0.0-0.7); EOSINOPHILS % (AUTO) 1.8 % (0.0-6.0); HEMATOCRIT 34 % (39-51); HEMOGLOBIN 11.6 g/dL (13.5-17.5); LYMPHOCYTES # (AUTO) 0.3 K/uL (0.8-4.8); LYMPHOCYTES % (AUTO) 4.1 % (20.0-44.0); MEAN CORPUSCULAR HEMOGLOBIN 30 PG (26.0-33.0); MEAN CORPUSCULAR HGB CONC 34 g/dl (31.0-36.0); MEAN CORPUSCULAR VOLUME 88 fL (80-96); MONOCYTES # (AUTO) 1.1 K/uL (0.1-1.30); NEUTROPHILS # (AUTO) 6.9 K/uL (1.8-8.9); NEUTROPHILS % (AUTO) 80.9 % (43.0-81.0); PLATELET COUNT (AUTO) 182 K/uL (150-450); RED BLOOD CELL COUNT(AUTO) 3.92 MIL/uL (4.5-6.0); RED CELL DISTRIBUTION WIDTH 14.2 % (11.5-15.0); WHITE BLOOD COUNT (AUTO) 8.5 K/uL (4.3-11.0)
[2025-05-12 08:48] LABS: CALCIUM, SERUM 8.4 mg/dL (8.5-10.1); CREATININE 1.1 mg/dL (0.6-1.3); POTASSIUM 3.4 mmol/L (3.5-5.1)
[2025-05-12] MEDS ORDERED: AMIO200T7 PO (11:14)
[2025-05-12] MEDS ORDERED: APIX2.5T PO (11:14)
[2025-05-12] MEDS ORDERED: FURO-145 PO (11:15)
[2025-05-12] MEDS ORDERED: CARV3.122 PO (11:15)
[2025-05-12] MEDS ORDERED: IOHEXOL-350 100 ML VIAL IV ONE (12:08)
[2025-05-12] MEDS ORDERED: CT SWABBABLE VALVE TRANS SET 1 EA INFUS.SET MC ONE (12:08)
[2025-05-12] MEDS ORDERED: IV NS 0.9% 250 ML IV ONE (12:09)
[2025-05-12] MEDS: POTASSIUM CHLORIDE 20 MEQ TAB.PRT.SR PO SCH (18:51)
[2025-05-13] VITALS: BP 121/70; TEMP 98.2; O2SAT 97
[2025-05-13 04:00] VITALS: BP 125/72; TEMP 98.4; O2SAT 97
[2025-05-13 07:52] LABS: CALCIUM, SERUM 8.5 mg/dL (8.5-10.1); CREATININE 1.1 mg/dL (0.6-1.3); MAGNESIUM 2.4 mg/dL (1.8-2.4); PHOSPHORUS 3.7 mg/dL (2.5-4.9); POTASSIUM 3.7 mmol/L (3.5-5.1)
[2025-05-13 08:00] VITALS: BP 111/72; TEMP 97.3; O2SAT 97
[2025-05-13 12:00] VITALS: BP 109/72; TEMP 97.2; O2SAT 98
[2025-05-13 16:00] VITALS: BP 121/73; TEMP 98.1; O2SAT 98
[2025-05-13] MEDS: APIXABAN 5 MG TABLET PO SCH (18:51)
[2025-05-13 20:00] VITALS: BP 120/61; TEMP 98.4; O2SAT 98
[2025-05-14] VITALS: BP 110/66; TEMP 98.4; O2SAT 98
[2025-05-14 04:00] VITALS: BP 129/90; TEMP 98.4; O2SAT 95
[2025-05-14 08:00] VITALS: BP 124/81; TEMP 98.4; O2SAT 96
[2025-05-14 12:00] VITALS: BP 133/76; TEMP 97.3; O2SAT 98
[2025-05-14 16:00] VITALS: BP 142/69; TEMP 97.7; O2SAT 96
[2025-05-14 20:00] VITALS: BP 139/60; TEMP 98.3; O2SAT 93
[2025-05-15] VITALS: BP 105/55; TEMP 98.3; O2SAT 99
[2025-05-15 04:00] VITALS: BP 118/57; TEMP 98.6; O2SAT 96
[2025-05-15 06:40] LABS: BASOPHILS % (AUTO) 0.5 % (0.0-2.0); EOSINOPHILS # (AUTO) 0.2 K/uL (0.0-0.7); EOSINOPHILS % (AUTO) 2.9 % (0.0-6.0); HEMATOCRIT 32 % (39-51); HEMOGLOBIN 11.2 g/dL (13.5-17.5); LYMPHOCYTES # (AUTO) 0.4 K/uL (0.8-4.8); LYMPHOCYTES % (AUTO) 6.1 % (20.0-44.0); MEAN CORPUSCULAR HEMOGLOBIN 30 PG (26.0-33.0); MEAN CORPUSCULAR HGB CONC 35 g/dl (31.0-36.0); MEAN CORPUSCULAR VOLUME 88 fL (80-96); MONOCYTES # (AUTO) 0.8 K/uL (0.1-1.30); MONOCYTES % (AUTO) 11.4 % (2.0-12.0); NEUTROPHILS # (AUTO) 5.7 K/uL (1.8-8.9); NEUTROPHILS % (AUTO) 79.1 % (43.0-81.0); PLATELET COUNT (AUTO) 170 K/uL (150-450); RED BLOOD CELL COUNT(AUTO) 3.68 MIL/uL (4.5-6.0); RED CELL DISTRIBUTION WIDTH 14.5 % (11.5-15.0); WHITE BLOOD COUNT (AUTO) 7.1 K/uL (4.3-11.0)
[2025-05-15 08:00] VITALS: BP 123/52; TEMP 98.2; O2SAT 98
[2025-05-15 09:08] LABS: CALCIUM, SERUM 8.3 mg/dL (8.5-10.1); CREATININE 1.3 mg/dL (0.6-1.3); POTASSIUM 3.5 mmol/L (3.5-5.1)
[2025-05-15 12:00] VITALS: BP 119/63; TEMP 97.9; O2SAT 98
[2025-05-15 16:00] VITALS: BP 126/58; TEMP 97.5; O2SAT 98
[2025-05-15 20:00] VITALS: BP 132/62; TEMP 98.6; O2SAT 98
[2025-05-16] VITALS: BP 116/71; TEMP 98.2; O2SAT 98
[2025-05-16 04:00] VITALS: BP 122/58; TEMP 98.2; O2SAT 98
[2025-05-16 08:00] VITALS: BP 118/61; TEMP 98.4; O2SAT 98
[2025-05-16] MEDS: NEOMY SULF/BACITRAC ZN/POLY 15 GM TUBE TP SCH (09:49)
[2025-05-16 10:56] LABS: ABG BASE EXCESS 15.4 mmol/L (-2.0-3.0); ABG OXYGEN SATURATION 97.2 % (94.0-98.0); ABG PCO2 49.3 mmHg (35.0-48.0); ABG PH 7.529 (7.350-7.450); ABG PO2 101.9 mmHg (83.0-108.0); ABG TOTAL HEMOGLOBIN 12.7 G/dL (13.5-17.5); COHb 0.2 % (0.5-1.5); MetHb 0.1 % (0.0-1.5); O2Hb 96.9 % (94.0-97.0); SITE, ABG RIGHT RADIAL
[2025-05-16 12:00] VITALS: BP 112/59; TEMP 97.9; O2SAT 98
[2025-05-16 16:00] VITALS: BP 136/81; TEMP 97.5; O2SAT 96
[2025-05-16 20:00] VITALS: BP 116/56; TEMP 98.2; O2SAT 100
[2025-05-17] VITALS: BP 99/69; TEMP 97.9; O2SAT 96
[2025-05-17 04:00] VITALS: BP 122/58; TEMP 97.7; O2SAT 97
[2025-05-17 06:54] LABS: BASOPHILS % (AUTO) 0.3 % (0.0-2.0); EOSINOPHILS # (AUTO) 0.2 K/uL (0.0-0.7); EOSINOPHILS % (AUTO) 1.8 % (0.0-6.0); HEMATOCRIT 37 % (39-51); HEMOGLOBIN 12.6 g/dL (13.5-17.5); LYMPHOCYTES # (AUTO) 0.6 K/uL (0.8-4.8); LYMPHOCYTES % (AUTO) 6.9 % (20.0-44.0); MEAN CORPUSCULAR HEMOGLOBIN 30 PG (26.0-33.0); MEAN CORPUSCULAR HGB CONC 35 g/dl (31.0-36.0); MEAN CORPUSCULAR VOLUME 88 fL (80-96); MONOCYTES % (AUTO) 11.7 % (2.0-12.0); NEUTROPHILS # (AUTO) 6.8 K/uL (1.8-8.9); NEUTROPHILS % (AUTO) 79.3 % (43.0-81.0); PLATELET COUNT (AUTO) 198 K/uL (150-450); RED BLOOD CELL COUNT(AUTO) 4.18 MIL/uL (4.5-6.0); RED CELL DISTRIBUTION WIDTH 14.5 % (11.5-15.0); WHITE BLOOD COUNT (AUTO) 8.6 K/uL (4.3-11.0)
[2025-05-17 07:25] LABS: CALCIUM, SERUM 8.3 mg/dL (8.5-10.1); POTASSIUM 3.6 mmol/L (3.5-5.1)
[2025-05-17 08:00] VITALS: BP 138/63; TEMP 98.2; O2SAT 98
[2025-05-17] MEDS ORDERED: FUROSEMIDE 20 MG/2 ML VIAL IV SCH (09:00)
[2025-05-17] MEDS ORDERED: DOCU-141 PO (10:20)
[2025-05-17 12:00] VITALS: BP 149/68; TEMP 97.9; O2SAT 97
== END 2025-05-17 15:05 | DRG 308 ==
LOC: ER 12:38 → TELE-TD 16:56 → ICU 05-08 18:55 → TELE1 05-10 17:11 → TELE-TD 05-12 13:18 → TELE1 05-14 09:37
PROVIDERS: ADMIT Internal Medicine; ATTEND Internal Medicine
DX: I48.0 Paroxysmal atrial fibrillation (principal); I50.33 Acute on chronic diastolic (congestive) heart failure; J96.01 Acute respiratory failure with hypoxia; I63.231 Cerebral infarction due to unspecified occlusion or stenosis of right carotid arteries; E87.1 Hypo-osmolality and hyponatremia; I13.0 Hypertensive heart and chronic kidney disease with heart failure and stage 1 through stage 4 chronic kidney disease, or unspecified chronic kidney disease; J98.11 Atelectasis; I31.39 Other pericardial effusion (noninflammatory); E87.3 Alkalosis; N17.9 Acute kidney failure, unspecified; E87.5 Hyperkalemia; Z88.2 Allergy status to sulfonamides; N40.0 Benign prostatic hyperplasia without lower urinary tract symptoms; E03.9 Hypothyroidism, unspecified; D64.9 Anemia, unspecified; Z87.11 Personal history of peptic ulcer disease; G47.33 Obstructive sleep apnea (adult) (pediatric); E86.1 Hypovolemia; E83.9 Disorder of mineral metabolism, unspecified; M89.9 Disorder of bone, unspecified; R29.705 NIHSS score 5; Z87.891 Personal history of nicotine dependence; N18.9 Chronic kidney disease, unspecified; Z79.82 Long term (current) use of aspirin
CPT/HCPCS: 36415; 36600; 70450-TC; 70496-TC; 70498-TC; 70551-TC; 71045-TC; 76770-TC; 80048-TC; 80053-TC; 80076-TC; 81001; 82550-TC; 82570-TC; 82803-TC; 82962-TC; 83735-TC; 83880; 83935-TC; 83970; 84100-TC; 84155; 84165; 84300-TC; 84443-TC; 84484-TC; 84550-TC; 85025-TC; 85378-TC; 93307-TC; 93970-TC; 94760-TC; 94799-TC; 97110-TC; 97116-TC; 97530-TC; 97535-TC; A4223; G0378; J0282; J0612; J1650; J1815; J1938; J3490; J7030; J7050; J7060; Q9967